=== PATIENT | male | born 1960 | race Caucasian/White ===

== ENCOUNTER 2021-05-25 01:55 | Emergency (ER) | payer MEDICAID, SELFPAY ==
[~2021-05-25] VITALS: Ht 185.4 cm; Wt 120.0 kg
[2021-05-25 02:03] VITALS: BP 144/95
[2021-05-26] MEDS ORDERED: DIAZ5TAB PO (10:18)
[2021-05-26] MEDS ORDERED: ORPH100T2 PO (10:18)
== END 2021-05-25 06:16 | disposition left against medical advice (07) ==
LOC: ER 01:55
DX: M54.2 Cervicalgia (principal); Z53.21 Procedure and treatment not carried out due to patient leaving prior to being seen by health care provider

== ENCOUNTER 2021-05-26 08:25 | Emergency (ER) | payer MEDICAID ==
[~2021-05-26] VITALS: Ht 188 cm; Wt 110.0 kg
[2021-05-26] MEDS: ketorolac tromethamine 15mg/ml inj. IV ONE (08:45)
[2021-05-26] MEDS: morphine 4 MG/ML inj SYRINge IV ONE (08:45)
[2021-05-26] MEDS: LORazepam 2 mg/ml vial IV ONE (09:00)
[2021-05-26] MEDS ORDERED: DIAZ5TAB PO (10:18)
[2021-05-26] MEDS ORDERED: ORPH100T2 PO (10:18)
[2021-05-26 11:05] VITALS: BP 129/87
== END 2021-05-26 11:09 | disposition home or self-care (01) ==
LOC: ER 08:25
DX: M54.2 Cervicalgia (principal); G44.209 Tension-type headache, unspecified, not intractable; Z88.0 Allergy status to penicillin; Z88.2 Allergy status to sulfonamides; Z79.899 Other long term (current) drug therapy
CPT/HCPCS: 70450; 72125; 96374; 96375; 99284; J1885; J2270

== ENCOUNTER 2021-11-19 21:38 | Emergency (ER) | payer MEDICAID ==
[~2021-11-19] VITALS: Ht 185.4 cm; Wt 106.8 kg
[~2021-11-19 21:38] MED LIST: DIAZ5TAB PO; ORPH100T2 PO
[2021-11-19 21:41] VITALS: BP 139/93
[2021-11-19] MEDS ORDERED: cephalexin 500mg capsule PO ONE (22:35)
[2021-11-19] MEDS ORDERED: CEPH-585 PO (22:35)
== END 2021-11-19 22:54 | disposition home or self-care (01) ==
LOC: ER 21:39
DX: L03.115 Cellulitis of right lower limb (principal); L02.415 Cutaneous abscess of right lower limb; L73.9 Follicular disorder, unspecified; Z88.0 Allergy status to penicillin; Z88.2 Allergy status to sulfonamides; Z79.2 Long term (current) use of antibiotics; Z79.899 Other long term (current) drug therapy
CPT/HCPCS: 99283

== ENCOUNTER 2021-11-21 16:50 | Emergency (ER) | payer MEDICAID ==
[~2021-11-21 16:50] MED LIST changes: +CEPH-585 PO
== END 2021-11-21 19:17 | disposition left against medical advice (07) ==
LOC: ER 16:51
DX: Z00.01 Encounter for general adult medical examination with abnormal findings (principal); Z53.21 Procedure and treatment not carried out due to patient leaving prior to being seen by health care provider